=== PATIENT | male | born 1985 | race Caucasian/White ===

== ENCOUNTER 2020-01-18 08:23 | Emergency (ER) | payer BC, SELFPAY ==
[2020-01-18 08:33] VITALS: BP 134/86; PULSE 88; RESP 20; TEMP 36.5; O2SAT 98
--- NOTE | 2020-01-18 08:33 | ED.GENADULT ---
HPI - General Adult General Chief complaint: Upper Respiratory Infection Stated complaint: sinus pressure Time Seen by Provider: 01/18/20 08:33 Source: patient and RN notes reviewed Mode of arrival: ambulatory Limitations: no limitations History of Present Illness HPI narrative: 34-year-old male presents with complaints of upper respiratory infection, facial congestion, facial pain, and intermittent headaches (not the worst of his life) for the past 24 hours. Sudafed and Ibuprofen (600mg) last this morning at 03:00 with no relief. No facial swelling. No cough. Nasal congestion no rhinorrhea. No chest pain or shortness of breath. Exacerbating factors consist of smoke exposure. Denies fever or chills. Denies nausea, vomiting, and abdominal pain. Tolerating po intake well. Remains active. The patient reports he have not been diagnosed with COVID-19. The patient reports he is not waiting for the results of a COVID-19 lab test. The patient reports he do not have fever, chills, weakness, fatigue, myalgia, or facial swelling. The patient reports he do not have a new or worsening cough or shortness of breath. Denies chest pain. The patient reports he do not have any rhinorrhea, sore throat, loss of taste, and diarrhea. Denies recent traveling. Denies concerns for COVID-19 or exposures been home with limited outdoor exposure except for essential household needs, work, and return home. At this time, patient is not suspected of having COVID-19. Some parts of this dictation were generated by voice recognition software and may contain typographical and/or grammatical inaccuracies. Related Data Allergies Allergy/AdvReac Type Severity Reaction Status Date / Time No Known Allergies Allergy Verified 01/18/20 08:33 Review of Systems Review of Systems: Narrative: CONSTITUTIONAL: Denies fever, chills, sweats. EYES: Denies visual changes, redness, discharge. ENT: Complains of congestion, facial pressure, intermittent sore throat. Denies rhinorrhea, otalgia. CARDIOVASCULAR: Denies chest pain, palpitations, edema. RESPIRATORY: Denies dyspnea, wheezing, cough. GASTROINTESTINAL: Denies abdominal pain, nausea, vomiting, diarrhea. GENITOURINARY: Denies dysuria, hematuria, abnormal discharge. SKIN: Denies rash or itching. MUSCULOSKELETAL: Denies acute back pain, joint pain, or myalgia. NEUROLOGIC: Denies numbness or focal weakness. Complains of intermittent GILLETTE. PSYCHIATRIC: Denies anxiety or depression. All systems reviewed & are unremarkable except as noted in HPI and below. [facility] Past Medical History Medical History Smoker Surgical History Surgical History (Updated 01/18/20 @ 09:41 by NAY He) No significant past surgical history Family History Family History (Updated 01/18/20 @ 09:42 by ANY He) Father Alive and well Mother Alive and well Social History Social History (Updated 01/18/20 @ 09:42 by ANY He) Smoking packs per day: 0.25 Smoking cigarettes per day: 5.0 Years smoked: 10 Smoking pack-years: 2.50 Smoking status: Current every day smoker Tobacco type: cigarettes Second hand tobacco smoke exposure: No Alcohol intake: current Substance use: never Living arrangements: with family Occupation/Education: occupation Gender identity (if verbalized by the patient): Male Sexual Orientation (if Verbalized by the Patient): Straight or Heterosexual Comments At time of signature, agree with nurse past medical, surgical, social, and family history. There is no relevant family history pertinent to the presenting complaint. Exam Narrative: Exam Narrative: GENERAL: This is a well-nourished, well-developed patient, in no apparent distress. Talks in full sentences and ambulates with steady gait without dyspnea. HEAD: normocephalic, atraumatic. EYES: PERRL. Sclera clear/white. Vision is grossly intact. EARS: External ears normal, auditory canals
== END 2020-01-18 08:59 | disposition home or self-care (01) ==
PROVIDERS: Emergency Provider Nurse Practitioner Family
DX: J32.9 Chronic sinusitis, unspecified (principal); Z20.828 Contact with and (suspected) exposure to other viral communicable diseases; F17.210 Nicotine dependence, cigarettes, uncomplicated
CPT/HCPCS: 99213; G0463

== ENCOUNTER 2020-04-01 08:14 | Outpatient (NON) | payer BC, SELFPAY ==
[2020-04-01 21:01] LABS: SARS-CoV-2 RNA PCR Negative
== END 2020-04-01 08:15 ==
LOC: ANHCOVIDDT 08:15
PROVIDERS: Visit Provider Physician Assistant
DX: Z20.828 Contact with and (suspected) exposure to other viral communicable diseases (principal)
CPT/HCPCS: 87635; C9803; U0003

== ENCOUNTER → 2021-05-28 01:03 | Outpatient (CLI) | payer BC, SELFPAY ==
[2021-05-29 15:55] LABS: SARS-CoV-2 RNA PCR Negative
== END ==
PROVIDERS: Visit Provider Family Medicine
DX: J02.9 Acute pharyngitis, unspecified (principal); Z20.822 Contact with and (suspected) exposure to COVID-19
CPT/HCPCS: C9803; U0003; U0005

== ENCOUNTER 2022-03-19 15:28 | Emergency (ER) | payer BC, SELFPAY ==
--- NOTE | 2022-03-19 15:29 | ED.URI ---
HPI - URI/Sore Throat General Chief Complaint: Ear Stated Complaint: LIGHT HEADED/EAR PRESSURE/NAUSEA/BACK PAIN Time Seen by Provider: 03/19/22 15:29 Source: patient and RN notes reviewed History of Present Illness HPI Narrative: Patient is a 36-year-old male who presents to the Urgent Care with complaints of bilateral ear pressure some intermittent nausea, back pain, fever and body aches. Patient states the symptoms started this morning and he has been taking Tylenol. Patient states his main concern is his bowels he was having at the end of this week. Patient denies any ill exposures. No other acute complaints. No acute distress noted. Patient aware of the plan of care. Some parts of this dictation were generated by voice recognition software and may contain typographical and/or grammatical inaccuracies. Related Data Allergies Allergy/AdvReac Type Severity Reaction Status Date / Time No Known Allergies Allergy Verified 03/19/22 15:48 Review of Systems Review of Systems: CONSTITUTIONAL: Denies fever, chills, or sweats. EYES: Denies visual changes, redness, or discharge. ENT: Reports of sinus congestion, rhinorrhea, bilateral ear pressure CARDIOVASCULAR: Denies chest pain, palpitations, or edema. RESPIRATORY: Denies cough or dyspnea. GASTROINTESTINAL: Denies abdominal pain, nausea, vomiting, or diarrhea. GENITOURINARY: Denies dysuria or hematuria. SKIN: Denies rash or itching. MUSCULOSKELETAL: Denies back pain, joint pain. Reports the back pain and body NEUROLOGIC: Denies headache, numbness, or weakness. All other systems reviewed are negative, except as documented in HPI. [facility] Past Medical History Medical History Smoker Surgical History Surgical History (Updated 01/18/20 @ 09:41 by ANY He) No significant past surgical history Family History Family History (Updated 01/18/20 @ 09:42 by ANY He) Father Alive and well Mother Alive and well Social History Social History (Updated 01/18/20 @ 09:42 by ANY He) Smoking packs per day: 0.25 Smoking cigarettes per day: 5.0 Years smoked: 10 Smoking pack-years: 2.50 Smoking status: Current every day smoker Tobacco type: cigarettes Second hand tobacco smoke exposure: No Alcohol intake: current Substance use: never Gender identity (if verbalized by the patient): Male Sexual Orientation (if Verbalized by the Patient): Straight or Heterosexual Comments At the time of my signature, I reviewed and agree with the nursing past medical, surgical, social, and family history. There is no relevant family history pertinent to the patient complaint. Exam Narrative: GENERAL: This is a well-nourished, well-developed patient, in no apparent distress. HEAD: normocephalic, atraumatic. EYES: PERRL. Sclera clear/white. Vision is grossly intact. EARS: External ears normal, auditory canals clear and without drainage, TMs normal without perforation. Hearing grossly intact. NOSE: External nose normal with no obvious nasal discharge, bilateral erythema nares with clear rhinorrhea THROAT: Mucous membranes moist, posterior pharynx clear. Moderate postnasal drainage NECK: Neck supple, non-tender without lymphadenopathy CARDIOVASCULAR: Regular rate and rhythm without murmurs, gallops, or rubs. RESPIRATORY: Clear to auscultation. Breath sounds equal bilaterally. No wheezes, rales, or rhonchi. SKIN: Slightly flushed. Warm, intact with no suspicious lesions or rash, good texture and turgor. NEURO: awake, alert, and oriented to person, place and time. There were no obvious focal neurologic abnormalities. EXTREMITIES: No clubbing, cyanosis, or edema. Course Course Level of Care: Express Care Visit Vital Signs Vital signs: Vital Signs Temperature 100.5 F H 03/19/22 15:49 Pulse Rate 115 H 03/19/22 15:49 Respiratory Rate 16 03/19/22 15:49 Blood Pressure 128/77 03/19/22 15:49 Pulse Oximetry 98
[2022-03-19 15:49] VITALS: BP 128/77; PULSE 115; RESP 16; TEMP 38.1; O2SAT 98
== END 2022-03-19 16:40 | disposition home or self-care (01) ==
PROVIDERS: Emergency Provider Nurse Practitioner Family
DX: B34.9 Viral infection, unspecified (principal); F17.210 Nicotine dependence, cigarettes, uncomplicated
CPT/HCPCS: 87081; 87804; 87880; 99213; G0463

== ENCOUNTER 2025-04-26 19:18 | Emergency (ER) | payer BC, SELFPAY ==
--- NOTE | 2025-04-26 19:27 | ED_ITS ---
HPI - General Adult General Chief complaint: Upper Respiratory Infection Stated complaint: COUGH/SINUS Time Seen by Provider: 04/26/25 19:27 Source: patient Mode of arrival: ambulatory Limitations: no limitations History of Present Illness HPI narrative: 40-year-old male patient presents to [facility] with complaints of a cough for the past 2 weeks. Patient states he has had a little bit of drainage some conge stion. Denies fevers body aches chills. Denies any ear pain. Denies sore throat. Denies chest pain or shortness of breath. Denies abdominal pain, nausea, vomiting or diarrhea. Denies any sneezing. Patient states he has been taking some [id number] cough medication and NyQuil for his symptoms. Related Data Allergies Allergy/AdvReac Type Severity Reaction Status Date / Time No Known Allergies Allergy Verified 04/26/25 19:26 Review of Systems Review of Systems: CONSTITUTIONAL: Denies fever, chills, or sweats. EYES: Denies visual changes, redness, or discharge. ENT: Denies rhinorrhea, positive congestion, denies sore throat, or otalgia. CARDIOVASCULAR: Denies chest pain, palpitations, or edema. RESPIRATORY: Positive cough , denies dyspnea. GASTROINTESTINAL: Denies abdominal pain, nausea, vomiting, or diarrhea. GENITOURINARY: Denies dysuria or hematuria. SKIN: Denies rash or itching. MUSCULOSKELETAL: Denies back pain, joint pain, or myalgia. NEUROLOGIC: Denies headache, numbness, or weakness. PSYCHIATRIC: Denies anxiety or depression. [facility] Past Medical History Medical History Smoker Surgical History Surgical History No significant past surgical history Family History Family History Father Alive and well Mother Alive and well Social History Social History Smoking packs per day: 0.25 Smoking cigarettes per day: 5.0 Years smoked: 10 Smoking pack-years: 2.50 Smoking status: Current every day smoker Tobacco type: cigarettes Second hand tobacco smoke exposure: No Alcohol intake: current Substance use: never Substance use type: does not use Lack of Transportation: No Lack of Food: Never True Current Housing: I Have Housing Concerned About Future Housing: No Difficulty Paying Gas/Electric Bills: No Difficulty Paying for Meds: No Currently Unemployed: No Education: Bachelor's Degree Difficulty w/ Childcare or Family Care: No Living arrangements: with family Occupation/Education: occupation Gender identity (if verbalized by the patient): Male Sexual Orientation (if Verbalized by the Patient): Straight or Heterosexual Comments At the time of my signature I agree with nursing past medical history, surgical, social, and family history. There is no relevant family history pertinent to the presenting complaint. Exam Narrative: GENERAL: Well-appearing, well-nourished, and in no acute distress. HEAD: Normocephalic, atraumatic. EYES: PERRLA and EOMI. ENT: Nares clear, no rhinorrhea or epistaxis. Mucous membranes moist. posterior pharynx with no erythema, tonsillar enlargement, exudates or lesions present. Bilateral TMs are clear no erythema or foreign bodies the canal. NECK: Supple. No lymphadenopathy CHEST: Clear to auscultation. No respiratory distress. HEART: Regular rate and rhythm. No murmur heard. Normal peripheral pulses. ABDOMEN: Soft, nontender, nondistended, normal active bowel sounds. EXTREMITIES: Normal range of motion. No edema. SKIN: Warm, dry, no rash. NEURO: No focal deficits. Alert and oriented x3. Course Course Level of Care: Express Care Visit Vital Signs Vital signs: Vital Signs Temperature 36.7 C 04/26/25 19:28 Pulse Rate 115 H 04/26/25 19:28 Respiratory Rate 16 04/26/25 19:28 Blood Pressure 145/81 H 04/26/25 19:28 Pulse Oximetry 98 04/26/25 19:28 Temperature 36.7 C 04/26/25 19:28 Pulse Rate 115 H 04/26/25 19:28 Respiratory Rate 16 04/26/25 19:28 Blood Pressure 145/81 H 04/26/25 19:28 Pulse Oximetry 98 04/26/25 19:28 Vital signs reviewed. The patient has been informed that they may have pre-hypertension or Hypertension based on a BP reading in the department. I recommend that the patient call the primary care provider listed on their discharge instructions or a physician of their choice this week to arrange follow up for further evaluatio n of possible pre-hypertension or Hypertension MDM MDM Narrative Medical decision making narrative: Plan of care patient is to discharge home with some Julio Hidalgo. Discussed with patient that there is no evidence or symptoms that would warrant any antibiotics today. Discussed with patient this is most likely drainage possibly allergies may be a virus causing the symptoms. Encouraged patient to use it 24 hour antihistamines something such as Zyrtec, Claritin [place] he may continue taking [id number]-[id number]-[id number] medications as needed. Encourage warm salt water gargles, hot tea with honey a humidifier by his bed and drinking lots of water. Discussed with patient he could also try and use a Neti pot to try and clear out some of the drainage in the sinuses. Also recommend some pize-ivu-uitmejd vitamins that might boost his immune system such as vitamin-C, zinc vitamin D3. Differential Diagnosis Differential Diagnosis: Differential diagnosis: Allergic rhinitis, chronic sinusitis, tonsillitis, acute sinusitis, infectious mononucleosis, seasonal influenza, pertussis, diphtheria, meningococcal disease, viral syndrome, viral bronchitis, RSV, COVID- 19 Critical Care Time Critical Care Time Critical Care Time: No Discharge Plan Discharge Clinical Impression: Viral URI with cough Patient Disposition: Home Condition: Stable Instructions: Antibiotic Form, Viral Syndrome (ED) Additional Instructions: Viral illness may last between 7-12days; antibiotic is NOT recommended at this time. Recommend antihistamine such as Benadryl at night time and Claritin/Zyrtec/[place] during the day Cough syrup may cause drowsiness; avoid driving or take it at night time. Also, recommend symptomatic treatment includes: rest, fluids, and increase humidity of the air at home. Recommend Acetaminophen or nonsteroidal anti-inflammatory agents (NSAIDs) as directed in the bottle to reduce fever and/pain/headache. Avoid smoking/second-hand smoke. Limit visits to areas with large crowds. Please schedule a follow-up visit with your personal physician for further evaluation and treatment within 3-5days. Including recheck and discussion of your blood pressure. If your symptoms persist, change or worsen significantly before you can contact your personal physician then please, without delay, go to the emergency department for further evaluation. Patient Language: [place] Prescriptions: New benzonatate 200 mg capsule 200 mg PO TID PRN (Reason: cough) 10 Days Qty: 30 0RF Follow-up/Referrals: Jacob Nguyễn MD [Primary Care Provider, [facility]] Time of Disposition: 19:35
[2025-04-26 19:28] VITALS: BP 145/81; PULSE 115; RESP 16; TEMP 36.7; O2SAT 98
== END 2025-04-26 19:40 | disposition home or self-care (01) ==
PROVIDERS: Emergency Provider Nurse Practitioner Family; PCP Family Medicine
DX: J06.9 Acute upper respiratory infection, unspecified (principal); F17.210 Nicotine dependence, cigarettes, uncomplicated
CPT/HCPCS: 99213; G0463

== ENCOUNTER 2025-05-06 08:14 | Emergency (ER) | payer BC, SELFPAY ==
[2025-05-06] VITALS (11 sets, daily range): BP systolic 118–140; BP diastolic 71–87; PULSE 99–112; RESP 18–27; TEMP 37.2–38.1; O2SAT 91–98
--- NOTE | ~2025-05-06 | XR_ITS ---
EXAMINATION: XR chest 2V DATE: 05/06/2025 09:39 INDICATION: Cough TECHNIQUE: PA and lateral views of the chest were obtained. COMPARISON: None FINDINGS: Airspace opacities in bilateral mid and lower lung zones, minimal on the right and more prominent on the left which is suspicious for pneumonia. No pleural effusion or pneumothorax. The cardiomediastinal silhouette is normal. Visualized bones and soft tissues are unremarkable. IMPRESSION: 1. Opacities in the bilateral mid and lower lung zones, left greater than right which are concerning for pneumonia versus less likely atelectasis or asymmetric pulmonary edema. Reviewed, dictated and finalized at location A. [employer] IMPRESSION: 1. Opacities in the bilateral mid and lower lung zones, left greater than right which are concerning for pneumonia versus less likely atelectasis or asymmetri c pulmonary edema.
--- OUTSIDE RECORDS SUMMARY | 2025-05-06 08:17 | XMS_ITS | Patient Health Record ---
Author Organization [facility] Address [address] [place] [address] Care Team Providers Care [employer] Name Role Phone Billy Reese Primary Care Provider Reason For Referral No Information Medications Medication SIG (Take, Route, Frequency, Duration) Notes Start Date End Date Status Sulfamethoxazole-TMP DS 800-160 MG Tablet 1 tablet Orally Twice a day; Duration: 10 day(s) 05/29/2016 Active Immunizations Vaccine Route Administration Date Status Comme nts Influenza IM Intramuscular 03/23/2015 Administered Admini stered at [facility] Problems No Known Problems Plan Of Treatment No Information Insurance Providers Payer Name Payer Address Payer Phone Subscriber Number Group Number Insured Name Patient Relationship to Insured Coverage Start Date Coverage End Date BCBS [address] [place] [address] [id number] Trevin Robert Self - patient is the insured 2016 Medical (General) History Medical History History ICD Code bronchitis
[2025-05-06 10:10] LABS: Influenza A QL RT-PCR Negative (Negative); Influenza B QL RT-PCR Negative (Negative); RSV RNA, RT-PCR Negative (Negative); SARS-CoV-2 RNA PCR Negative (Negative)
--- NOTE | 2025-05-06 10:18 | ECG_ITS ---
Test Date: 2025-05-06 11:43:21 Measurements Intervals [place] Rate: 101 P: 36 HI: 153 QRS: 18 QRSD: 97 T: 4 QT: 325 QTc: 421 Interpretive Statements SINUS TACHYCARDIA POSSIBLE LEFT ATRIAL ENLARGEMENT CONSIDER INFERIOR INFARCT, AGE INDETERMINATE ABNORMAL ECG No previous ECG available for comparison Electronically Signed On 05-06-2025 12:15:00 [employer] by Carlos Dickinson D.O.
[2025-05-06] MEDS: ACETAMINOPHEN 500 MG TABLET 1000 MG PO (11:23)
[2025-05-06 11:35] LABS: Hematocrit 42.7 % (42.0-52.0); Hemoglobin 14.5 g/dL (14.0-18.0); Immature Granulocyte Percent A 0.5 % (0-0.5); Lymphocytes Absolute Auto 0.84 K/mm3 (0.9-3.2); Mean Corpuscular HGB Conc 34.0 g/dl (32-36); Mean Corpuscular Hemoglobin 29.1 pg (26-34); Mean Corpuscular Volume 85.7 fl (80-100); Nucleated Red Blood Cells Absolute Auto 0.000 K/mm3 (0.0-0.012); Nucleated Red Blood Cells Perc 0.0 % (0.0-0.2); Platelet Count Result 307 k/mm3 (150-375); Red Blood Count 4.98 M/mm3 (4.6-6.20); White Blood Count 12.0 K/mm3 (4.5-10.0)
[2025-05-06 11:49] LABS: Alanine Aminotransferase 56 U/L (6-50); Albumin Level 4.3 g/dL (3.5-5.1); Alkaline Phosphatase 124 U/L (38-126); Anion Gap 11 mmol/L (4-12); Aspartate Amino Transferase 52 U/L (17-59); Bilirubin,Total 1.1 mg/dL (0.2-1.3); Blood Urea Nitrogen 10 mg/dL (9-20); Calcium 8.9 mg/dL (8.4-10.2); Carbon Dioxide 23 mmol/L (22-30); Chloride 104 mmol/L (98-107); Estimated CRCL calculation 152 ml/min; Estimated Glomerular Filt Rate > 60; Glucose 129 mg/dL (65-110); Potassium 3.7 mmol/L (3.4-5.0); Sodium 138 mmol/L (137-145); Total Protein 8.0 g/dL (6.3-8.2)
--- NOTE | 2025-05-06 12:26 | ED_ITS ---
HPI - General Adult General Chief complaint: Upper Respiratory Infection Stated complaint: Cough, [id number], aches, PNE? Time Seen by Provider: 05/06/25 11:04 History of Present Illness HPI narrative: 32-year-old male presents to the emergency department for evaluation for worsening shortness of breath. Patient has had cough and congestive symptoms for approximately last month. Patient did follow up with an urgent care approximately 1 week ago and was given Tessalon Perles. Patient followed up with urgent care yesterday was started on doxycycline. Patient was advised to return to the emergency department if he had any worsening symptoms. Patient states overnight he did have some increased wheeze and so he presents emergency department today. Patient was mildly febrile upon arrival to the ED and was treated with a g of Tylenol. Related Data Allergies Allergy/AdvReac Type Severity Reaction Status Date / Time No Known Allergies Allergy Verified 05/06/25 08:16 Review of Systems 2 Review of Systems: All systems reviewed & are unremarkable except as noted in HPI and below PMFSH Past Medical History Medical History Smoker Surgical History Surgical History No significant past surgical history Family History Family History Father Alive and well Mother Alive and well Social History Social History Smoking packs per day: 0.25 Smoking cigarettes per day: 5.0 Years smoked: 10 Smoking pack-years: 2.50 Smoking status: Current every day smoker Tobacco type: cigarettes Second hand tobacco smoke exposure: No Alcohol intake: current Substance use: never Substance use type: does not use Lack of Transportation: No Lack of Food: Never True Current Housing: I Have Housing Concerned About Future Housing: No Difficulty Paying Gas/Electric Bills: No Difficulty Paying for Meds: No Currently Unemployed: No Education: Bachelor's Degree Difficulty w/ Childcare or Family Care: No Living arrangements: with family Occupation/Education: occupation Gender identity (if verbalized by the patient): Male Sexual Orientation (if Verbalized by the Patient): Straight or Heterosexual Exam 2 Narrative: APPEARANCE: Ill-appearing HEAD: normocephalic, atraumatic. EYES: PERRLA/EOMI, conjunctivae clear. NOSE: Normal no drainage EARS:TMS clear with good light reflex. THROAT: Pharynx clear, no exudate. NECK: Supple. No adenopathy, no masses. RESPIRATORY: Airway patent, respirations nonlabored. Clear to auscultation bilaterally, no rales, rhonchi, wheezing. CARDIOVASCULAR: Regular rate and rhythm without murmurs rubs or gallops. ABDOMINAL: Soft, nontender, nondistended, normal bowel sounds MUSCULOSKELETAL: Moves all extremities. Strength/ROM intact, No edema, No calf tenderness. NEURO: Alert. Cranial nerves II through XII intact. Good gait. Good coordination SKIN: Warm, dry. Normal Color Course Vital Signs Vital signs: Vital Signs Temperature 100.6 F H 05/06/25 09:13 Pulse Rate 112 H 05/06/25 09:13 Respiratory Rate 18 05/06/25 09:13 Blood Pressure 137/87 05/06/25 09:13 Pulse Oximetry 97 05/06/25 09:13 Oxygen Delivery Room Air 05/06/25 09:13 Temperature 99.0 F 05/06/25 13:46 Pulse Rate 101 H 05/06/25 13:45 Respiratory Rate 24 H 05/06/25 13:45 Blood Pressure 118/71 05/06/25 13:45 Pulse Oximetry 94 05/06/25 13:45 Oxygen Delivery Room Air 05/06/25 09:13 [facility] Narrative Medical decision making narrative: 40-year-old male present to the emergency department for evaluation for persistent symptoms of pneumonia. Patient was started on doxycycline and less than 24 hours ago. Patient will have additional Augmentin added to that. Patient is currently having a low-grade fever and does have a white blood cell count of 12. Patient did have a mildly elevated lactic acid of 2.1 patient was treated with Tylenol for the elevated fever and a L lactated Ringer's for the elevated lactic acid. Patient was negative for influenza RSV and for COVID. Chest x-ray did confirm a pneumonia. Patient was treated with breathing treatment did feel improved. Patient will be provided additional Tessalon Perles in addition to albuterol inhaler. Patient will have Augmentin added to the doxycycline. Patient was comfortable the plan for discharge home with additional outpatient treatment. Differential Diagnosis Differential Diagnosis: COVID, RSV, influenza, pneumonia, hypoxia Lab Data [facility] Lab Attestation statement: I personally reviewed the patient's lab results. 05/06/25 11:12 05/06/25 11:12 Labs: Lab Results 05/06/25 05/06/25 Range/Units 09:20 11:12 WBC 12.0 H (4.5-10.0) K/mm3 RBC 4.98 (4.6-6.20) M/mm3 Hgb 14.5 (14.0-18.0) g/dL Hct 42.7 (42.0-52.0) % MCV 85.7 (80-100) fl MCH 29.1 (26-34) pg MCHC 34.0 (32-36) g/dl RDW 12.3 (11.5-14.5) % Plt Count 307 (150-375) k/mm3 MPV 9.9 (7.4-10.4) fl Immature Gran % (Auto) 0.5 (0-0.5) % Neut % (Auto) 87.1 H (45.5-73.1) % Lymph % (Auto) 7.0 L (18.3-44.2) % Coleman % (Auto) 4.9 (2.6-8.5) % Eos % (Auto) 0.3 (0-4.4) % Baso % (Auto) 0.2 (0.2-1.2) % Lymph # (Auto) 0.84 L (0.9-3.2) K/mm3 Coleman # (Auto) 0.6 (0.1-0.6) K/mm3 Eos # (Auto) 0.0 (0-0.3) K/mm3 Baso # (Auto) 0.0 (0.0-0.1) K/mm3 Abs Immat Gran (auto) 0.06 H (0.00-0.031) K/mm3 Absolute Neuts (auto) 10.5 H (1.3-6.7) K/mm3 Absolute Nucleated RBC 0.000 (0.0-0.012) K/mm3 Nucleated RBC % 0.0 (0.0-0.2) % Sodium 138 (137-145) mmol/L Potassium 3.7 (3.4-5.0) mmol/L Chloride 104 (98-107) mmol/L Carbon Dioxide 23 (22-30) mmol/L Anion Gap 11 (4-12) mmol/L BUN 10 (9-20) mg/dL Creatinine 0.68 L (0.7-1.3) mg/dL Estim Creat Clear Calc 152 ml/min Estimated GFR > 60 (59 - ) Glucose 129 H (65-110) mg/dL Lactic Acid 2.1 H (0.7-2.0) mmol/L Calcium 8.9 (8.4-10.2) mg/dL Total Bilirubin 1.1 (0.2-1.3) mg/dL AST 52 (17-59) U/L ALT 56 H (6-50) U/L Alkaline Phosphatase 124 (38-126) U/L Total Protein 8.0 (6.3-8.2) g/dL Albumin 4.3 (3.5-5.1) g/dL Influenza A (RT-PCR) Negative (Negative) Influenza B (RT-PCR) Negative (Negative) RSV (RT-PCR) Negative (Negative) SARS-CoV-2 RNA (RT-PCR) Negative (Negative) Imaging Data Radiologist's impression: ITS Impressions Chest X-Ray 05/06/25 09:57 IMPRESSION: 1. Opacities in the bilateral mid and lower lung zones, left greater than right which are concerning for pneumonia versus less likely atelectasis or asymmetric pulmonary edema. Discharge Plan Discharge Clinical Impression: Pneumonia Patient Disposition: Home Condition: Stable Instructions: Antibiotic Form Additional Instructions: Doxycycline as directed until completed. Also take Augmentin. Albuterol inhaler as needed for wheeze and shortness of breath. Julio Hidalgo for cough control. Have close follow-up with your primary care physician. Patient Language: Welsh Prescriptions: New benzonatate 100 mg capsule 100 mg PO TID PRN (Reason: cough) Qty: 14 0RF albuterol sulfate 90 mcg/actuation HFA aerosol inhaler 1 puff inhalation QID Qty: 6.7 0RF amoxicillin-pot clavulanate 875-125 mg tablet 1 tablet PO Q12H 7 Days Qty: 14 0RF No Action benzonatate 200 mg capsule 200 mg PO TID PRN (Reason: cough) 10 Days Qty: 30 0RF Follow-up/Referrals: Jacob Nguyễn MD [Primary Care Provider, Family Practice] Stand Alone Forms: Work/School Release IP
[2025-05-06] MEDS: ALBUTEROL SULFATE NEB 2.5 MG/3 ML INH 5 MG INHALATION (12:36)
== END 2025-05-06 14:01 | disposition home or self-care (01) ==
PROVIDERS: Physician Assistant; Emergency Provider Emergency Medicine; PCP Family Medicine
DX: J18.9 Pneumonia, unspecified organism (principal); Z20.822 Contact with and (suspected) exposure to COVID-19; R00.0 Tachycardia, unspecified; F17.210 Nicotine dependence, cigarettes, uncomplicated
CPT/HCPCS: 36415; 71046; 80053; 83605; 85025; 87637; 93005; 94640; 99283; A9270